=== PATIENT | female | born 1975 | race African-American/Black ===

== ENCOUNTER 2017-09-17 17:36 | Emergency (ER) | payer OTHER ==
[2017-09-17 17:58] LABS: Bilirubin Small (Negative); Blood, Urine Large (Negative); Clarity CLOUDY (Clear); Glucose, Urine (Dipstick) Negative (Negative); Leukocyte Small (Negative); Nitrite Negative (Negative); Protein, Urine (Dipstick) 30 mg/dL (Neg-Trace); Specific Gravity, Urine 1.034 (1.002-1.036); pH, Urine 5.5 (5.0-9.0)
[2017-09-17 18:00] LABS: Bacteria/HPF None Seen HPF (None Seen); RBC/HPF GREATER THAN 50-TNTC HPF (0-3); WBC/HPF 21-50 HPF (0-3)
[2017-09-17 18:02] LABS: Pathc Cast-AUWi Flag 2.94 (0-2.49); Pregnancy Test - Urine (BHCG) Negative (Negative); Pregu Control Background? CLEAR/WHITE (CLR/WHITE); Pregu Control Bar Appear? YES (CONTROL BAR); Specific Gravity 1.034 (1.002-1.036)
[2017-09-17 18:03] LABS: Hyaline Casts/LPF 0-3 HYALINE CAST LPF (0-3 Hyaline); Renal Epithelial None Seen HPF (0-3); Transitional Epithelial NONE SEEN HPF (0-3)
[2017-09-17 18:05] LABS: #Basophils 0.1 thou/uL (0.0-0.2); #Eosinphils 0.3 thou/uL (0.0-0.7); #Lymphocytes 2.7 thou/uL (1.20-3.40); #Monocytes 0.4 thou/uL (0.11-0.59); #Neutrophils 3.1 thou/uL (1.40-6.50); %Basophils 1.2 % (0.0-1.0); %Eosinophils 3.8 % (0.0-10.0); %Lymphocytes 41.2 % (21.0-51.0); %Monocytes 6.3 % (0.0-10.0); %Neutrophils 47.4 % (42.0-75.0); Hemoglobin 12.3 g/dL (12.0-16.0); Mean Corpuscular HGB CONC 32.4 g/dL (32.0-36.0); Mean Corpuscular Hemoglobin 26.7 pg (27.0-31.0); Mean Corpuscular Volume 82.3 fl (81.0-99.0); Platelet Count 391 thou/uL (130-400); RBC Distribution Width 14.7 % (11.5-14.5); Red Blood Cell (RBC) Count 4.62 mill/uL (4.20-5.40); White Blood Cell (WBC) Count 6.6 thou/uL (4.8-10.8)
[2017-09-17 19:07] LABS: ALT (SGPT) 40 U/L (8-55); AST (SGOT) 21 U/L (5-34); Albumin 4.4 g/dL (3.5-5.0); Alkaline Phosphatase 79 U/L (40-150); Anion Gap 11 mmol/L (10-20); BUN (Urea Nitrogen) 10 mg/dL (7.0-18.7); Bilirubin, Total 0.3 mg/dL (0.2-1.2); Calc. Creatinine Clearance 0 mL/min (70-130); Calcium 9.6 mg/dL (7.8-10.44); Carbon Dioxide 25 mmol/L (22-29); Chloride 108 mmol/L (98-107); Estimated GFR-MDRD Greater than 90; Glucose 109 mg/dL (70-105); Potassium 3.2 mmol/L (3.5-5.1); Protein, Total 7.4 g/dL (6.0-8.3); Sodium 141 mmol/L (136-145)
--- NOTE | 2017-09-17 19:51 | ULT ---
TRANSVAGINAL PELVIC ULTRASOUND: 09/17/17 INDICATION: History of vaginal bleeding three months after vaginal . Patient had a Depo shot three weeks ago . TECHNIQUE: Calvo scale, color doppler and spectral doppler images were obtained in the pelvis. FINDINGS: The uterus measures 9.8 x 5.5 x 6 cm. Within the uterus, there is a heterogeneous circumscribed mass involving the anterior uterine body suspicious for a uterine fibroid measuring up to 3 cm. The uterus overall has a heterogeneous appearance and may reflect additional smaller underlying fibroids. Endom etrial stripe measures 4.2 mm. The right ovary measures 3.6 x 1.9 x 1.7 cm. There is a 1.5 cm cyst within the right ovary. Left ovar y measures 3.9 x 3.4 x 2.6 cm. There is a 2.5 cm cyst within the left ovary. There is normal flow to both ovaries. IMPRESSION: 1. Heterogeneous uterus suspicious for fibroid uterus. 2. Bilateral ovarian follicular cysts. 3. No free fluid. POS: RODERICK
[2017-09-17] MEDS ORDERED: Nitrofurantoin Monohyd/M-Cryst 100 MG CAP PO SCH (20:45)
[2017-09-17] MEDS ORDERED: Ketorolac Tromethamine 60 MG/2 ML VIAL ONE (21:50)
== END 2017-09-17 22:16 | disposition home or self-care (01) ==
LOC: ERS 17:36
DX: D25.9 Leiomyoma of uterus, unspecified (principal); I10 Essential (primary) hypertension; Z79.899 Other long term (current) drug therapy
CPT/HCPCS: 36415; 76856; 80053; 81003; 81015; 81025; 85025; 87086; 96372; J1885

== ENCOUNTER 2018-02-22 17:52 | Emergency (ER) | payer OTHER ==
--- NOTE | 2018-02-22 19:29 | RAD ---
RIGHT ANKLE THREE VIEWS: 02/22/18 HISTORY: Right ankle pain. FINDINGS: Ankle mortise and talar dome are intact. Enthesophyte projects medially from the medial malleolus. So ft tissue swelling over the lateral malleolus. Osteophytosis throughout the ankle and hindfoot. Plant ar and Achilles enthesophytes at the posterior aspect of the calcaneus. IMPRESSION: Soft tissue swelling. Degenerative changes. No acute osseous abnormalities are demonstrated. POS: RODERICK
== END 2018-02-22 18:41 | disposition home or self-care (01) ==
LOC: ERS 17:52
DX: S93.401A Sprain of unspecified ligament of right ankle, initial encounter (principal); I10 Essential (primary) hypertension; Z79.899 Other long term (current) drug therapy; X58.XXXA Exposure to other specified factors, initial encounter

== ENCOUNTER 2020-08-10 00:43 | Emergency (ER) | payer OTHER | END 2020-08-10 01:01 | disposition home or self-care (01) | LOC: ERS 00:43 | DX: Z43.3 Encounter for attention to colostomy (principal); I10 Essential (primary) hypertension; Z79.899 Other long term (current) drug therapy | CPT/HCPCS: 99282 ==

== ENCOUNTER 2023-02-24 11:05 | Emergency (ER) | payer OTHER ==
[2023-02-24] MEDS ORDERED: Morphine 4 MG/ML VIAL ONE ×2 (11:47→15:03)
[2023-02-24] MEDS ORDERED: Ketorolac Tromethamine 30 MG/ML VIAL ONE (11:48)
[2023-02-24 12:03] LABS: #Basophils 0.1 thou/uL (0.0-0.2); #Eosinphils 0.3 thou/uL (0.0-0.7); #Monocytes 1.4 thou/uL (0.11-0.59); #Neutrophils 13.2 thou/uL (1.40-6.50); %Basophils 0.3 % (0.0-1.0); %Lymphocytes 12.3 % (21.0-51.0); %Neutrophils 76.2 % (42.0-75.0); Hematocrit 34.1 % (36.0-47.0); Hemoglobin 10.6 g/dL (12.0-16.0); Mean Corpuscular HGB CONC 31.1 g/dL (32.0-36.0); Mean Corpuscular Hemoglobin 24.9 pg (27.0-31.0); Mean Platelet Volume 11.7 fL (7.4-10.4); Platelet Count 541 10x3/uL (130-400); RBC Distribution Width 18.5 % (11.5-14.5); Red Blood Cell (RBC) Count 4.26 mill/uL (4.20-5.40); White Blood Cell (WBC) Count 17.4 10x3/uL (4.8-10.8)
[2023-02-24 12:26] LABS: ALT (SGPT) 97 U/L (8-55); AST (SGOT) 101 U/L (5-34); Albumin 3.6 g/dL (3.5-5.0); Alkaline Phosphatase 881 U/L (40-110); Anion Gap 19 mmol/L (10-20); BUN (Urea Nitrogen) 15 mg/dL (7.0-18.7); Bilirubin, Total 1.9 mg/dL (0.2-1.2); Calc. Creatinine Clearance 0 mL/min (70-130); Calcium 10.1 mg/dL (7.8-10.44); Carbon Dioxide 25 mmol/L (22-29); Chloride 99 mmol/L (98-107); Estimated GFR 108; Globulin 4.3 g/dL (2.4-3.5); Glucose 190 mg/dL (70-105); Potassium 2.9 mmol/L (3.5-5.1); Protein, Total 7.9 g/dL (6.0-8.3); Sodium 140 mmol/L (136-145)
[2023-02-24] MEDS ORDERED: Iopamidol-370 76% 500 ML MDV (1 ML CHARGE) ONE (13:28)
== END 2023-02-24 17:57 | disposition home or self-care (01) ==
LOC: ERS 11:05
DX: M84.48XA Pathological fracture, other site, initial encounter for fracture (principal); I10 Essential (primary) hypertension
CPT/HCPCS: 36415; 74177; 80053; 85025; 93005; 96361; 96374; 96375; 96376; J1885; J2270

== ENCOUNTER 2023-02-28 18:03 | Inpatient (IN) | payer OTHER ==
[2023-02-28] MEDS ORDERED: Ondansetron PF 4 MG/2 ML Vial IVP PRN (19:01)
[2023-02-28] MEDS ORDERED: Acetaminophen 650 MG Suppository PR PRN (19:01)
[2023-02-28] MEDS ORDERED: Ondansetron ODT 4 MG TAB PO PRN (19:01)
[2023-02-28] MEDS: Morphine 4 MG/ML VIAL SLOW IVP PRN (19:22)
[2023-02-28 19:44] VITALS: BMI 37.3
[2023-02-28 19:50] LABS: #Basophils 0.1 thou/uL (0.0-0.2); #Eosinphils 0.2 thou/uL (0.0-0.7); #Monocytes 1.4 thou/uL (0.11-0.59); #Neutrophils 15.8 thou/uL (1.40-6.50); %Basophils 0.4 % (0.0-1.0); %Eosinophils 1.2 % (0.0-10.0); %Lymphocytes 9.2 % (21.0-51.0); %Monocytes 7.2 % (0.0-10.0); %Neutrophils 80.8 % (42.0-75.0); Hemoglobin 10.7 g/dL (12.0-16.0); Mean Corpuscular HGB CONC 31.5 g/dL (32.0-36.0); Mean Corpuscular Hemoglobin 25.5 pg (27.0-31.0); Mean Platelet Volume 11.1 fL (7.4-10.4); Platelet Count 456 10x3/uL (130-400); RBC Distribution Width 19.7 % (11.5-14.5); White Blood Cell (WBC) Count 19.5 10x3/uL (4.8-10.8)
[2023-02-28 20:11] LABS: Lactic Acid 2.4 mmol/L (0.5-2.2)
[2023-02-28 20:16] LABS: Anion Gap 22 mmol/L (10-20); BUN (Urea Nitrogen) 18 mg/dL (7.0-18.7); Calc. Creatinine Clearance 143 mL/min (70-130); Calcium 9.5 mg/dL (7.8-10.44); Carbon Dioxide 23 mmol/L (22-29); Chloride 99 mmol/L (98-107); Estimated GFR 108; Glucose 88 mg/dL (70-105); Magnesium 1.6 mg/dL (1.6-2.6); Potassium 3.6 mmol/L (3.5-5.1); Sodium 140 mmol/L (136-145)
[2023-02-28 20:26] LABS: Albumin 3.6 g/dL (3.5-5.0)
[2023-02-28 20:30] LABS: Bilirubin, Total 3.3 mg/dL (0.2-1.2)
[2023-02-28 20:31] LABS: Alkaline Phosphatase 1011 U/L (40-110)
[2023-02-28 20:33] LABS: AST (SGOT) 204 U/L (5-34); Bilirubin, Direct 2.7 mg/dL (0.1-0.3)
[2023-02-28 20:34] LABS: ALT (SGPT) 112 U/L (8-55)
[2023-02-28] MEDS: Acetaminophen 325 MG TAB PO PRN (20:48)
[2023-02-28] MEDS: GUAIFENESIN SF SOLN 200 MG/10 ML UDCUP PO PRN (20:48)
[2023-03-01] MEDS ORDERED: Sodium Chloride 0.9% 1,000 ML IV SCH (00:30)
[2023-03-01] MEDS ORDERED: Vancomycin (BATCH) 1.25 GM in Premix 1 BAG IVPB SCH (00:30)
[2023-03-01] MEDS: Morphine 4 MG/ML VIAL SLOW IVP PRN ×5 (00:40→23:42)
[2023-03-01] MEDS ORDERED: Vancomycin (BATCH) 1.75 GM in Premix 1 BAG IVPB SCH (00:45)
[2023-03-01] MEDS: Sodium Chloride 0.9% 1,000 ML IV SCH ×2 (01:50→05:28)
[2023-03-01] MEDS ORDERED: Cefepime 2 GM in Sodium Chloride 0.9% 100 ML IVPB SCH (02:00)
[2023-03-01 02:32] LABS: Bacteria/HPF None Seen HPF (None Seen); Bilirubin 2+ (Negative); Blood, Urine Negative (Negative); Clarity Turbid (Clear); Glucose, Urine (Dipstick) Normal (Negative); Ketone, Urine 10 mg/dL (Negative); Leukocyte Negative Leu/uL (Negative); Nitrite Negative (Negative); Protein, Urine (Dipstick) 70 mg/dL (Neg-Trace); RBC/HPF 0-3 HPF (0-3); Specific Gravity, Urine 1.029 (1.002-1.036); Squamous Epithelial 0-3 HPF (0-3); pH, Urine 5.5 (5.0-9.0)
[2023-03-01] MEDS: Acetaminophen 325 MG TAB PO PRN ×2 (05:26→20:57)
[2023-03-01] MEDS: GUAIFENESIN SF SOLN 200 MG/10 ML UDCUP PO PRN (05:27)
[2023-03-01] MEDS ORDERED: Piperacillin/Tazobactam 3.375 GM in Sodium Chloride 0.9% 100 ML IVPB SCH ×2 (05:30→06:00)
[2023-03-01 06:13] LABS: #Basophils 0.1 thou/uL (0.0-0.2); #Eosinphils 0.2 thou/uL (0.0-0.7); #Monocytes 1.5 thou/uL (0.11-0.59); #Neutrophils 16.5 thou/uL (1.40-6.50); %Basophils 0.3 % (0.0-1.0); %Monocytes 7.5 % (0.0-10.0); %Neutrophils 81.5 % (42.0-75.0); Hematocrit 30.6 % (36.0-47.0); Hemoglobin 9.6 g/dL (12.0-16.0); Mean Corpuscular HGB CONC 31.4 g/dL (32.0-36.0); Mean Corpuscular Hemoglobin 25.1 pg (27.0-31.0); Mean Corpuscular Volume 79.9 fl (78.0-98.0); Mean Platelet Volume 11.4 fL (7.4-10.4); Platelet Count 421 10x3/uL (130-400); RBC Distribution Width 19.4 % (11.5-14.5); Red Blood Cell (RBC) Count 3.83 mill/uL (4.20-5.40); White Blood Cell (WBC) Count 20.2 10x3/uL (4.8-10.8)
[2023-03-01 06:30] LABS: Lactic Acid 1.8 mmol/L (0.5-2.2)
[2023-03-01 06:35] LABS: Anion Gap 18 mmol/L (10-20); BUN (Urea Nitrogen) 20 mg/dL (7.0-18.7); Calc. Creatinine Clearance 143 mL/min (70-130); Calcium 9.3 mg/dL (7.8-10.44); Carbon Dioxide 24 mmol/L (22-29); Chloride 99 mmol/L (98-107); Estimated GFR 108; Glucose 95 mg/dL (70-105); Potassium 3.3 mmol/L (3.5-5.1); Sodium 138 mmol/L (136-145)
[2023-03-01] MEDS: Piperacillin/Tazobactam 3.375 GM in Sodium Chloride 0.9% 100 ML IVPB SCH ×2 (09:23→18:03)
[2023-03-01] MEDS ORDERED: Potassium Chloride 20 MEQ TAB PO SCH (12:30)
[2023-03-01] MEDS: Vancomycin 1 GM in Premix 1 BAG IVPB SCH (15:40)
[2023-03-02] MEDS: Vancomycin 1 GM in Premix 1 BAG IVPB SCH ×2 (00:49→14:15)
[2023-03-02] MEDS: Piperacillin/Tazobactam 3.375 GM in Sodium Chloride 0.9% 100 ML IVPB SCH ×4 (04:48→21:46)
[2023-03-02] MEDS ORDERED: Sevoflurane 250 ML INH ANEST BOTTLE ONE (04:56)
[2023-03-02] MEDS ORDERED: Thrombin 5000 UNITS/5 ML VIAL ONE ×3 (06:43→10:47)
[2023-03-02] MEDS ORDERED: Vancomycin 1 GM VIAL ONE (06:43)
[2023-03-02 06:55] LABS: Hematocrit 31.4 % (36.0-47.0); Mean Corpuscular HGB CONC 31.8 g/dL (32.0-36.0); Mean Corpuscular Hemoglobin 25.8 pg (27.0-31.0); Mean Corpuscular Volume 80.9 fl (78.0-98.0); Mean Platelet Volume 11.9 fL (7.4-10.4); Platelet Count 365 10x3/uL (130-400); RBC Distribution Width 19.3 % (11.5-14.5); Red Blood Cell (RBC) Count 3.88 mill/uL (4.20-5.40)
[2023-03-02] MEDS ORDERED: Fentanyl 250 MCG/5 ML VIAL ONE ×2 (07:01→12:32)
[2023-03-02] MEDS ORDERED: Midazolam HCl 2 mg/2 ml Vial ONE (07:01)
[2023-03-02 07:04] LABS: INR-International Normal Ratio 1.3; Prothrombin Time 16.2 sec (12.0-14.7)
[2023-03-02 07:05] LABS: PTT 31.9 sec (22.9-36.1)
[2023-03-02 07:24] LABS: ALT (SGPT) 101 U/L (8-55); AST (SGOT) 174 U/L (5-34); Albumin 2.9 g/dL (3.5-5.0); Alkaline Phosphatase 859 U/L (40-110); Anion Gap 19 mmol/L (10-20); BUN (Urea Nitrogen) 20 mg/dL (7.0-18.7); Bilirubin, Total 4.9 mg/dL (0.2-1.2); Calc. Creatinine Clearance 122 mL/min (70-130); Calcium 9.4 mg/dL (7.8-10.44); Carbon Dioxide 22 mmol/L (22-29); Chloride 101 mmol/L (98-107); Estimated GFR 90; Globulin 4.3 g/dL (2.4-3.5); Glucose 108 mg/dL (70-105); Potassium 3.1 mmol/L (3.5-5.1); Protein, Total 7.2 g/dL (6.0-8.3); Sodium 139 mmol/L (136-145)
[2023-03-02] MEDS ORDERED: Scopolamine 1 mg/72 hour Patch ONE (07:42)
[2023-03-02] MEDS ORDERED: Glycopyrrolate 0.2 MG/ML 5 ML SYRINGE ONE (08:00)
[2023-03-02] MEDS ORDERED: Rocuronium Bromide 10 MG/ML (10ML VIAL) ONE (08:00)
[2023-03-02] MEDS ORDERED: Vecuronium 10 MG VIAL ONE (08:00)
[2023-03-02] MEDS ORDERED: Dexamethasone 20 MG/5 ML VIAL ONE (08:00)
[2023-03-02] MEDS ORDERED: PHENYLEPHRINE-NS 100 MCG/ML 10 ML SYRINGE ONE (08:00)
[2023-03-02] MEDS ORDERED: PROPOFOL 200 MG/20 ML VIAL ONE (08:00)
[2023-03-02] MEDS ORDERED: NEOSTIGMINE 3 MG/3 ML SYR 3 MG/3 ML SYRINGE ONE (08:00)
[2023-03-02] MEDS ORDERED: Lidocaine 1% PF 5 ML VIAL ONE (08:00)
[2023-03-02] MEDS ORDERED: Ondansetron PF 4 MG/2 ML Vial ONE (08:00)
[2023-03-02] MEDS ORDERED: Albumin 5% 500 ML ONE (09:03)
[2023-03-02] MEDS ORDERED: Potassium Chloride 20 MEQ TAB PO SCH (10:00)
[2023-03-02] MEDS ORDERED: Magnesium 2 GM/50 ML(in water) 2 GM in Premix 1 BAG IVPB SCH (10:00)
[2023-03-02] MEDS ORDERED: Milk Of Magnesia 30 ML UDCUP PO PRN (12:18)
[2023-03-02] MEDS ORDERED: Zolpidem Tartrate 5 MG TAB PO PRN (14:00)
[2023-03-02] MEDS ORDERED: diphenhydrAMINE 50 MG/ML VIAL IM/IV PRN (14:00)
[2023-03-02] MEDS ORDERED: Fentanyl CADD 100 ML IVPB SCH (14:00)
[2023-03-02] MEDS ORDERED: diphenhydrAMINE 25 MG CAP PO PRN (14:00)
[2023-03-02] MEDS ORDERED: Promethazine HCl 25 MG/ML VIAL IM PRN (14:00)
[2023-03-02] MEDS ORDERED: Ondansetron PF 4 MG/2 ML Vial IVP PRN (14:00)
[2023-03-02 17:44] LABS: Hematocrit 27.2 % (36.0-47.0); Hemoglobin 8.5 g/dL (12.0-16.0); Mean Corpuscular HGB CONC 31.3 g/dL (32.0-36.0); Mean Corpuscular Hemoglobin 26.4 pg (27.0-31.0); Platelet Count 274 10x3/uL (130-400); RBC Distribution Width 19.5 % (11.5-14.5); Red Blood Cell (RBC) Count 3.22 mill/uL (4.20-5.40); White Blood Cell (WBC) Count 19.7 10x3/uL (4.8-10.8)
[2023-03-02] MEDS: Ketorolac Tromethamine 30 MG/ML VIAL IVP SCH (18:01)
[2023-03-02 18:03] LABS: Mean Corpuscular Volume 84.5 fl (78.0-98.0)
[2023-03-02 18:04] LABS: Magnesium 2.1 mg/dL (1.6-2.6)
[2023-03-03] MEDS: Ketorolac Tromethamine 30 MG/ML VIAL IVP SCH ×5 (00:52→23:57)
[2023-03-03] MEDS: Vancomycin 1 GM in Premix 1 BAG IVPB SCH ×2 (00:52→13:37)
[2023-03-03] MEDS: Piperacillin/Tazobactam 3.375 GM in Sodium Chloride 0.9% 100 ML IVPB SCH ×3 (05:32→22:52)
[2023-03-03 06:43] LABS: Mean Corpuscular HGB CONC 32.1 g/dL (32.0-36.0); Mean Corpuscular Hemoglobin 25.9 pg (27.0-31.0); Mean Platelet Volume 12.1 fL (7.4-10.4); Platelet Count 235 10x3/uL (130-400); RBC Distribution Width 19.6 % (11.5-14.5); Red Blood Cell (RBC) Count 3.48 mill/uL (4.20-5.40); White Blood Cell (WBC) Count 21.7 10x3/uL (4.8-10.8)
[2023-03-03 06:49] LABS: Mean Corpuscular Volume 80.5 fl (78.0-98.0)
[2023-03-03 07:16] LABS: Anion Gap 18 mmol/L (10-20); BUN (Urea Nitrogen) 32 mg/dL (7.0-18.7); Calc. Creatinine Clearance 52 mL/min (70-130); Calcium 8.7 mg/dL (7.8-10.44); Carbon Dioxide 16 mmol/L (22-29); Chloride 106 mmol/L (98-107); Estimated GFR 33; Glucose 140 mg/dL (70-105); Potassium 4.4 mmol/L (3.5-5.1); Sodium 136 mmol/L (136-145)
[2023-03-03] MEDS ORDERED: Polyvinyl Alcohol 1.4%/Povidone 0.6% Opth Drops L EYE PRN (08:20)
[2023-03-03] MEDS: Lactated Ringer's 1,000 ML IV SCH ×2 (11:27→23:45)
[2023-03-03 12:51] LABS: Vancomycin, Trough 41.5 ug/mL
[2023-03-03] MEDS ORDERED: Zolpidem Tartrate 5 MG TAB PO PRN (13:00)
[2023-03-03] MEDS ORDERED: MINERAL OIL/WHITE PETROLATUM 3.5 GM TUBE L EYE PRN (21:00)
[2023-03-04 05:47] LABS: Hematocrit 25.9 % (36.0-47.0); Hemoglobin 8.3 g/dL (12.0-16.0); Mean Corpuscular Hemoglobin 25.9 pg (27.0-31.0); Mean Corpuscular Volume 80.9 fl (78.0-98.0); Mean Platelet Volume 11.4 fL (7.4-10.4); Platelet Count 190 10x3/uL (130-400); RBC Distribution Width 19.9 % (11.5-14.5); White Blood Cell (WBC) Count 19.6 10x3/uL (4.8-10.8)
[2023-03-04] MEDS: Piperacillin/Tazobactam 3.375 GM in Sodium Chloride 0.9% 100 ML IVPB SCH ×3 (05:56→21:56)
[2023-03-04] MEDS: Ketorolac Tromethamine 30 MG/ML VIAL IVP SCH (05:57)
[2023-03-04 05:59] LABS: Delete Auto Diff?? YES; Manual Diff?? YES
[2023-03-04 06:18] LABS: Anion Gap 19 mmol/L (10-20); BUN (Urea Nitrogen) 48 mg/dL (7.0-18.7); Calc. Creatinine Clearance 39 mL/min (70-130); Calcium 9.2 mg/dL (7.8-10.44); Carbon Dioxide 16 mmol/L (22-29); Chloride 106 mmol/L (98-107); Estimated GFR 23; Glucose 115 mg/dL (70-105); Potassium 4.3 mmol/L (3.5-5.1); Sodium 137 mmol/L (136-145)
[2023-03-04 06:50] LABS: Anisocytosis MODERATE=16-30 cells HPF (0-5); Band 9 % (5-11); Burr Cells SLIGHT = 2-5 cells HPF (0-1); CellaVision Operator ID lab.sh2; Hypochromia SLIGHT = 6-15 cells HPF (0-5); Large Platelets 1.9 % (0-5); Lymphocytes 7 % (21-51); Macrocytosis MODERATE=16-30 cells HPF (0-5); Monocytes 5 % (0-10); Neutrophil 80 % (42-75); Ovalocytes SLIGHT = 2-5 cells HPF (0-1); Platelet Adequacy Comment Platelets Normal; Polychromasia SLIGHT = 2-3 cells HPF (0-2); Smudge Cells 10.6 %; Target Cells MODERATE= 6-15 cells HPF (0-1); Total Cell Count 104
[2023-03-04] MEDS ORDERED: Dextrose 10% in Water 1,000 ML IV SCH (10:00)
[2023-03-04 10:11] LABS: ALT (SGPT) 1153 U/L (8-55); AST (SGOT) 1725 U/L (5-34); Albumin 2.9 g/dL (3.5-5.0); Alkaline Phosphatase 814 U/L (40-110); Bilirubin, Direct 5.4 mg/dL (0.1-0.3); Bilirubin, Total 6.7 mg/dL (0.2-1.2); Phosphorus 5.4 mg/dL (2.3-4.7); Protein, Total 6.3 g/dL (6.0-8.3)
[2023-03-04] MEDS: Sodium Bicarbonate Tab 325 MG TAB PO SCH (10:24)
[2023-03-04] MEDS: Lactated Ringer's 1,000 ML IV SCH ×2 (10:24→17:52)
[2023-03-04] MEDS ORDERED: HYDROcodone/Acetaminophen 5/325 mg Tablet PO PRN ×2 (11:02)
[2023-03-04] MEDS: Albumin 25% 25 GM/100 ML BOT IVPB SCH ×2 (11:55→17:46)
[2023-03-04 12:07] LABS: Lactic Acid 1.5 mmol/L (0.5-2.2)
[2023-03-04] MEDS: fentaNYL 50 mcg/mL 1 mL Vial SLOW IVP PRN ×2 (17:51→20:49)
[2023-03-05] MEDS: Lactated Ringer's 1,000 ML IV SCH ×3 (03:16→20:22)
[2023-03-05] MEDS: Piperacillin/Tazobactam 3.375 GM in Sodium Chloride 0.9% 100 ML IVPB SCH ×3 (05:50→20:21)
[2023-03-05] MEDS: Albumin 25% 25 GM/100 ML BOT IVPB SCH ×2 (05:50)
[2023-03-05 05:57] LABS: Hematocrit 20.5 % (36.0-47.0); Hemoglobin 6.7 g/dL (12.0-16.0); Mean Corpuscular HGB CONC 32.7 g/dL (32.0-36.0); Mean Corpuscular Volume 79.5 fl (78.0-98.0); Mean Platelet Volume 11.7 fL (7.4-10.4); Platelet Count 141 10x3/uL (130-400); RBC Distribution Width 20.8 % (11.5-14.5); Red Blood Cell (RBC) Count 2.58 mill/uL (4.20-5.40); White Blood Cell (WBC) Count 14.8 10x3/uL (4.8-10.8)
[2023-03-05 06:02] LABS: Delete Auto Diff?? YES; Manual Diff?? YES
[2023-03-05 06:09] LABS: INR-International Normal Ratio 1.6; Prothrombin Time 19.4 sec (12.0-14.7)
[2023-03-05 06:19] LABS: Anion Gap 18 mmol/L (10-20); BUN (Urea Nitrogen) 56 mg/dL (7.0-18.7); Calc. Creatinine Clearance 33 mL/min (70-130); Calcium 9.5 mg/dL (7.8-10.44); Carbon Dioxide 17 mmol/L (22-29); Chloride 107 mmol/L (98-107); Estimated GFR 19; Glucose 111 mg/dL (70-105); Potassium 4.1 mmol/L (3.5-5.1); Sodium 138 mmol/L (136-145)
[2023-03-05 06:28] LABS: ALT (SGPT) 634 U/L (8-55); AST (SGOT) 496 U/L (5-34); Albumin 3.5 g/dL (3.5-5.0); Alkaline Phosphatase 578 U/L (40-110); Bilirubin, Direct 5.5 mg/dL (0.1-0.3); Bilirubin, Total 6.7 mg/dL (0.2-1.2); Protein, Total 6.1 g/dL (6.0-8.3)
[2023-03-05 06:29] LABS: Immunoglob - G (Total IgG) 974 mg/dL (552-1631); Immunoglob - M (Total IgM) 79 mg/dL (33-293)
[2023-03-05 06:32] LABS: Anisocytosis MARKED = >30 cells HPF (0-5); Band 27 % (5-11); CellaVision Operator ID LAB.CLH1; Hypochromia MODERATE=16-30 cells HPF (0-5); Lymphocytes 6 % (21-51); Macrocytosis MARKED = >30 cells HPF (0-5); Metamyelocyte 1 % (0-0); Monocytes 3 % (0-10); Neutrophil 63 % (42-75); Nucleated RBC (Manual Ct) 3 % (0); Platelet Adequacy Comment Platelets Normal; Polychromasia SLIGHT = 2-3 cells HPF (0-2); Target Cells MODERATE= 6-15 cells HPF (0-1); Total Cell Count 100
[2023-03-05 06:46] LABS: Hep B Surf Ag Non-Reactive S/CO (NonReactive); Hep C IgG Ab Non-Reactive S/CO (NonReactive); Hep C Index 0.08 S/CO (0-0.79)
[2023-03-05 06:48] LABS: HBCM Index 0.14 S/CO (0-0.79); Hepatitis B Core IgM Abs Non-Reactive S/CO (NonReactive)
[2023-03-05 07:27] LABS: Hep A IgM AB Non-Reactive S/CO (NonReactive); Hep A IgM S/CO 0.21 S/CO (0-0.79)
[2023-03-05] MEDS: Sertraline 25 MG TAB PO SCH (08:52)
[2023-03-05] MEDS: Sodium Bicarbonate Tab 325 MG TAB PO SCH (08:52)
[2023-03-05] MEDS ORDERED: Sertraline 100 MG TAB PO SCH (09:00)
[2023-03-05] MEDS ORDERED: Vancomycin (BATCH) 1.25 GM in Premix 1 BAG IVPB SCH (11:00)
[2023-03-05 13:01] LABS: Vancomycin, Random 25.2 ug/mL (See Comment)
[2023-03-05 14:23] LABS: Bilirubin Negative (Negative); Blood, Urine 1+ (Negative); CAUTI Indications for Culture Fever or rigors; Clarity Turbid (Clear); Glucose, Urine (Dipstick) Normal (Negative); Ketone, Urine Negative (Negative); Leukocyte 25 Leu/uL (Negative); Nitrite Negative (Negative); Protein, Urine (Dipstick) 100 mg/dL (Neg-Trace); Specific Gravity, Urine 1.019 (1.002-1.036); Squamous Epithelial 0-3 HPF (0-3); Urobilinogen Normal mg/dL (Less than 2); pH, Urine 6.5 (5.0-9.0)
[2023-03-05 14:24] LABS: Bacteria/HPF 1+ HPF (None Seen)
[2023-03-05 14:25] LABS: Urine Culture Reflex No No
[2023-03-05] MEDS: fentaNYL 50 mcg/mL 1 mL Vial SLOW IVP PRN ×3 (14:34→20:18)
[2023-03-05] MEDS: hydrALAZINE 20 MG/ML VIAL SLOW IVP PRN (17:48)
[2023-03-05] MEDS: tiZANidine HCl 4 MG TAB PO PRN ×2 (19:42)
[2023-03-05] MEDS ORDERED: Scopolamine 1 mg/72 hour Patch TD SCH (21:00)
[2023-03-06] MEDS: Lactated Ringer's 1,000 ML IV SCH ×3 (01:37→21:35)
[2023-03-06] MEDS: Piperacillin/Tazobactam 3.375 GM in Sodium Chloride 0.9% 100 ML IVPB SCH ×2 (05:18→14:31)
[2023-03-06 06:54] LABS: Hematocrit 25.8 % (36.0-47.0); Hemoglobin 8.7 g/dL (12.0-16.0); Mean Corpuscular HGB CONC 33.7 g/dL (32.0-36.0); Mean Corpuscular Hemoglobin 26.9 pg (27.0-31.0); Mean Corpuscular Volume 79.9 fl (78.0-98.0); Mean Platelet Volume 11.6 fL (7.4-10.4); Platelet Count 144 10x3/uL (130-400); RBC Distribution Width 20.4 % (11.5-14.5); Red Blood Cell (RBC) Count 3.23 mill/uL (4.20-5.40); White Blood Cell (WBC) Count 18.8 10x3/uL (4.8-10.8)
[2023-03-06 07:02] LABS: Delete Auto Diff?? YES; Manual Diff?? YES
[2023-03-06 07:05] LABS: INR-International Normal Ratio 1.5; PTT 30.7 sec (22.9-36.1); Prothrombin Time 18.4 sec (12.0-14.7)
[2023-03-06 07:20] LABS: ALT (SGPT) 418 U/L (8-55); AST (SGOT) 203 U/L (5-34); Albumin 3.3 g/dL (3.5-5.0); Alkaline Phosphatase 577 U/L (40-110); Anion Gap 20 mmol/L (10-20); BUN (Urea Nitrogen) 61 mg/dL (7.0-18.7); Bilirubin, Total 6.3 mg/dL (0.2-1.2); Calc. Creatinine Clearance 31 mL/min (70-130); Calcium 10.2 mg/dL (7.8-10.44); Carbon Dioxide 17 mmol/L (22-29); Chloride 107 mmol/L (98-107); Estimated GFR 17; Glucose 82 mg/dL (70-105); Potassium 4.1 mmol/L (3.5-5.1); Protein, Total 6.3 g/dL (6.0-8.3); Sodium 140 mmol/L (136-145)
[2023-03-06 07:57] LABS: Anisocytosis MODERATE=16-30 cells HPF (0-5); Band 7 % (5-11); Burr Cells SLIGHT = 2-5 cells HPF (0-1); CellaVision Operator ID LAB.NR; Hypochromia SLIGHT = 6-15 cells HPF (0-5); Lymphocytes 9 % (21-51); Macrocytosis SLIGHT = 6-15 cells HPF (0-5); Monocytes 7 % (0-10); Neutrophil 77 % (42-75); Nucleated RBC (Manual Ct) 1 % (0); Ovalocytes SLIGHT = 2-5 cells HPF (0-1); Platelet Adequacy Comment Platelets Decreased; Polychromasia SLIGHT = 2-3 cells HPF (0-2); Schistocytes SLIGHT = 2-5 cells HPF (0-1); Smudge Cells 6.1 %; Target Cells SLIGHT = 2-5 cells HPF (0-1); Total Cell Count 99
[2023-03-06] MEDS: Sertraline 25 MG TAB PO SCH (08:51)
[2023-03-06] MEDS: Sodium Bicarbonate Tab 325 MG TAB PO SCH (08:51)
[2023-03-06 09:27] LABS: Phosphorus 5.1 mg/dL (2.3-4.7)
[2023-03-06] MEDS ORDERED: Scopolamine 1 mg/72 hour Patch TD SCH (10:00)
[2023-03-06 12:02] LABS: Bacteria/HPF 2+ HPF (None Seen); Bilirubin 1+ (Negative); Blood, Urine 3+ (Negative); Clarity Turbid (Clear); Glucose, Urine (Dipstick) Normal (Negative); Ketone, Urine Trace mg/dL (Negative); Leukocyte 250 Leu/uL (Negative); Nitrite Negative (Negative); Protein, Urine (Dipstick) 100 mg/dL (Neg-Trace); RBC/HPF Greater than 50 HPF (0-3); Specific Gravity, Urine 1.023 (1.002-1.036); Squamous Epithelial 0-3 HPF (0-3); Urobilinogen Normal mg/dL (Less than 2)
[2023-03-06] MEDS: fentaNYL 50 mcg/mL 1 mL Vial SLOW IVP PRN ×2 (12:19→14:34)
[2023-03-06] MEDS: Glycopyrrolate 1 MG TAB PO SCH ×2 (12:20→18:12)
[2023-03-06] MEDS: Albumin 25% 25 GM/100 ML BOT IVPB SCH ×2 (12:20→18:13)
[2023-03-06] MEDS: Morphine 4 MG/ML VIAL SLOW IVP PRN ×2 (18:11→22:40)
[2023-03-06] MEDS: hydrALAZINE 20 MG/ML VIAL SLOW IVP PRN (21:35)
[2023-03-07] MEDS: Piperacillin/Tazobactam 3.375 GM in Sodium Chloride 0.9% 100 ML IVPB SCH ×3 (01:08→18:32)
[2023-03-07] MEDS: Albumin 25% 25 GM/100 ML BOT IVPB SCH ×2 (01:08→05:12)
[2023-03-07] MEDS: Glycopyrrolate 1 MG TAB PO SCH ×2 (01:15→05:39)
[2023-03-07] MEDS: Lactated Ringer's 1,000 ML IV SCH ×4 (03:43→18:32)
[2023-03-07] MEDS: hydrALAZINE 20 MG/ML VIAL SLOW IVP PRN ×3 (05:09→14:07)
[2023-03-07] MEDS: Morphine 4 MG/ML VIAL SLOW IVP PRN (05:11)
[2023-03-07 06:01] LABS: ALT (SGPT) 260 U/L (8-55); AST (SGOT) 106 U/L (5-34); Albumin 4.1 g/dL (3.5-5.0); Alkaline Phosphatase 537 U/L (40-110); Anion Gap 21 mmol/L (10-20); BUN (Urea Nitrogen) 62 mg/dL (7.0-18.7); BUN/Creatinine Ratio 19.25; Bilirubin, Total 7.4 mg/dL (0.2-1.2); Calc. Creatinine Clearance 31 mL/min (70-130); Calcium 10.1 mg/dL (7.8-10.44); Carbon Dioxide 16 mmol/L (22-29); Chloride 107 mmol/L (98-107); Estimated GFR 17; Globulin 2.8 g/dL (2.4-3.5); Glucose 95 mg/dL (70-105); Potassium 3.7 mmol/L (3.5-5.1); Protein, Total 6.9 g/dL (6.0-8.3); Sodium 140 mmol/L (136-145)
[2023-03-07] MEDS: Sertraline 25 MG TAB PO SCH ×2 (08:51→18:15)
[2023-03-07] MEDS: Sodium Bicarbonate Tab 325 MG TAB PO SCH ×2 (08:51→18:16)
[2023-03-07] MEDS ORDERED: Glycopyrrolate 1 MG TAB PO SCH ×3 (10:15→12:00)
[2023-03-07] MEDS ORDERED: Glycopyrrolate 0.2 MG/ML 5 ML SYRINGE SLOW IVP SCH (13:30)
[2023-03-07] MEDS ORDERED: Metoprolol Tartrate 25 MG TAB PO SCH ×2 (14:49→16:15)
[2023-03-07] MEDS ORDERED: Metoprolol Tartrate 5 MG/5 ML VIAL IVP SCH (16:45)
[2023-03-07] MEDS: Lorazepam 2 MG/ML VIAL SLOW IVP SCH ×4 (16:58→23:41)
[2023-03-07 18:17] LABS: Magnesium 1.9 mg/dL (1.6-2.6); Phosphorus 5.1 mg/dL (2.3-4.7)
[2023-03-07] MEDS: Glycopyrrolate 0.2 MG/ML 5 ML SYRINGE SLOW IVP SCH (18:33)
[2023-03-07] MEDS ORDERED: Labetalol HCl 100 MG/20 ML VIAL SLOW IVP SCH (22:00)
[2023-03-07] MEDS: Metoprolol Tartrate 25 MG TAB PO SCH (22:06)
[2023-03-08] MEDS: Lorazepam 2 MG/ML VIAL SLOW IVP SCH ×8 (00:21→14:24)
[2023-03-08] MEDS: Glycopyrrolate 0.2 MG/ML 5 ML SYRINGE SLOW IVP SCH ×3 (00:24→12:31)
[2023-03-08] MEDS: Morphine 4 MG/ML VIAL SLOW IVP PRN (00:34)
[2023-03-08] MEDS: Piperacillin/Tazobactam 3.375 GM in Sodium Chloride 0.9% 100 ML IVPB SCH ×2 (02:31→10:30)
[2023-03-08] MEDS ORDERED: Labetalol HCl 100 MG/20 ML VIAL SLOW IVP PRN (02:53)
[2023-03-08 04:56] VITALS: TEMP 97.4
[2023-03-08 06:52] LABS: Hematocrit 23.3 % (36.0-47.0); Hemoglobin 7.6 g/dL (12.0-16.0); Mean Corpuscular HGB CONC 32.6 g/dL (32.0-36.0); Mean Corpuscular Hemoglobin 26.1 pg (27.0-31.0); Mean Corpuscular Volume 80.1 fl (78.0-98.0); Mean Platelet Volume 11.8 fL (7.4-10.4); Platelet Count 143 10x3/uL (130-400); RBC Distribution Width 22.1 % (11.5-14.5); Red Blood Cell (RBC) Count 2.91 mill/uL (4.20-5.40); White Blood Cell (WBC) Count 18.2 10x3/uL (4.8-10.8)
[2023-03-08 06:54] LABS: Delete Auto Diff?? YES; Manual Diff?? YES
[2023-03-08 07:11] LABS: ALT (SGPT) 186 U/L (8-55); AST (SGOT) 83 U/L (5-34); Albumin 3.6 g/dL (3.5-5.0); Alkaline Phosphatase 524 U/L (40-110); Anion Gap 21 mmol/L (10-20); BUN (Urea Nitrogen) 64 mg/dL (7.0-18.7); Bilirubin, Total 7.5 mg/dL (0.2-1.2); Calc. Creatinine Clearance 32 mL/min (70-130); Calcium 10.1 mg/dL (7.8-10.44); Carbon Dioxide 17 mmol/L (22-29); Chloride 111 mmol/L (98-107); Estimated GFR 18; Globulin 2.8 g/dL (2.4-3.5); Glucose 107 mg/dL (70-105); Potassium 3.7 mmol/L (3.5-5.1); Protein, Total 6.4 g/dL (6.0-8.3); Sodium 145 mmol/L (136-145)
[2023-03-08 07:15] LABS: Anisocytosis SLIGHT = 6-15 cells HPF (0-5); Band 8 % (5-11); CellaVision Operator ID LAB.GE; Large Platelets 2.9 % (0-5); Lymphocytes 6 % (21-51); Metamyelocyte 2 % (0-0); Monocytes 7 % (0-10); Myelocyte 1 % (0-0); Neutrophil 77 % (42-75); Nucleated RBC (Manual Ct) 3 % (0); Platelet Adequacy Comment Platelets Normal; Polychromasia SLIGHT = 2-3 cells HPF (0-2); Smudge Cells 9.8 %; Target Cells SLIGHT = 2-5 cells HPF (0-1); Total Cell Count 102
[2023-03-08] MEDS: Lactated Ringer's 1,000 ML IV SCH ×3 (07:58→13:47)
[2023-03-08] MEDS: Sodium Bicarbonate Tab 325 MG TAB PO SCH (08:56)
[2023-03-08] MEDS: Sertraline 25 MG TAB PO SCH (08:56)
[2023-03-08] MEDS: Metoprolol Tartrate 25 MG TAB PO SCH (08:56)
[2023-03-08 12:14] VITALS: BP 172/126
[2023-03-08 12:35] LABS: ANA Symphony (Qualitative) Negative (Negative); ANA Symphony (Quantitative) 0.5 Ratio (< 0.7 Negative); EliA Vaculitis New Method **** NEW METHOD ****; Mitochondrial Ab 1.1 U/mL (<4 Negative)
[2023-03-08] MEDS ORDERED: Furosemide 40 MG/4 ML VIAL SLOW IVP SCH (14:00)
== END 2023-03-08 16:25 | disposition hospice, home (50) | DRG 518 ==
LOC: INTOOBSV 18:03 → T4-A 18:03 → OBSVTOIN 03-01 14:04 → MSONC 03-07 07:19
PROVIDERS: ADMIT Internal Medicine; ATTEND Internal Medicine
PROC: 0QS004Z Reposition Lumbar Vertebra with Internal Fixation Device, Open Approach (ICD-10-PCS; principal; 2023-03-02)
PROC: 30233N1 Transfusion of Nonautologous Red Blood Cells into Peripheral Vein, Percutaneous Approach (ICD-10-PCS; 2023-03-02)
PROC: 30233J1 Transfusion of Nonautologous Serum Albumin into Peripheral Vein, Percutaneous Approach (ICD-10-PCS; 2023-03-02)
PROC: 00NY0ZZ Release Lumbar Spinal Cord, Open Approach (ICD-10-PCS; 2023-03-02)
DX: M84.58XG Pathological fracture in neoplastic disease, other specified site, subsequent encounter for fracture with delayed healing (principal); K72.00 Acute and subacute hepatic failure without coma; C18.9 Malignant neoplasm of colon, unspecified; R65.10 Systemic inflammatory response syndrome (SIRS) of non-infectious origin without acute organ dysfunction; G83.4 Cauda equina syndrome; E87.20 Acidosis, unspecified; N17.9 Acute kidney failure, unspecified; C78.00 Secondary malignant neoplasm of unspecified lung; Z66 Do not resuscitate; Z51.5 Encounter for palliative care; I10 Essential (primary) hypertension; D63.0 Anemia in neoplastic disease; R79.89 Other specified abnormal findings of blood chemistry; D72.829 Elevated white blood cell count, unspecified; R74.01 Elevation of levels of liver transaminase levels; E87.6 Hypokalemia; M48.061 Spinal stenosis, lumbar region without neurogenic claudication; M54.16 Radiculopathy, lumbar region; R26.81 Unsteadiness on feet; F41.9 Anxiety disorder, unspecified; T66.XXXA Radiation sickness, unspecified, initial encounter; R34 Anuria and oliguria; E83.39 Other disorders of phosphorus metabolism; Z90.710 Acquired absence of both cervix and uterus; Z79.899 Other long term (current) drug therapy; Z98.890 Other specified postprocedural states; Z90.49 Acquired absence of other specified parts of digestive tract
CPT/HCPCS: 36415; 36430; 70450; 71045; 72148; 76705; 76770; 80048; 80053; 80069; 80074; 80076; 80202; 81001; 83516; 83605; 83735; 84100; 85025; 85027; 85610; 85730; 86015; 86038; 86225; 86850; 86900; 86901; 87040; 87086; 93005; 93010; 93970; 96372; 96374; 96375; 96376; A4314; C1713; C1889; G0378; J0360; J0692; J1100; J1650; J1885; J1940; J2060; J2250; J2270; J2405; J2543; J2704; J3010; J3370; J3370-JW; J3475; J3490; J7050; J7120; P9016; P9045; P9047